=== PATIENT | female | born 1975 | race Two or more races ===

== ENCOUNTER → 2025-04-03 | Outpatient (CLI) | payer BC, SELFPAY ==
--- NOTE | 2025-04-03 08:15 | XR_ITS ---
Examination: Screening digital mammography, bilateral Computer aided detection 3-D breast Tomosynthesis, bilateral Date and time of exam: April 03, 2025 0819 hours Compared to mammograms dating to April 05, 2015 Indication: Screening Technique: Nonmagnified MLO, CC views of the breasts to been obtained, reconstructed from 3-D Tomosynthesis images. R2 computer aided detection program utilized for evaluation of suspicious masses and/or abnormal calcifications. 3-D Tomosynthesis images obtained. Findings: The breasts are extremely dense, which limits the sensitivity of mammography Circumscribed 20 mm mass retroareolar region right breast nipple level which may represent a cyst Benign calcifications No definite suspicious masses Impression: BI-RADS Category 0: Incomplete: Need additional imaging evaluation Recommend follow-up bilateral breast sonography to confirm bilateral breast cysts and exclude solid nodule 20 mm retroareolar region right breast
== END | disposition home or self-care (01) ==
LOC: CDIM 07:54
PROVIDERS: Referring Provider Student in an Organized Health Care Education/Training Program; Visit Provider Student in an Organized Health Care Education/Training Program
DX: Z12.31 Encounter for screening mammogram for malignant neoplasm of breast (principal); N60.01 Solitary cyst of right breast; N60.02 Solitary cyst of left breast
CPT/HCPCS: 77063; 77067

== ENCOUNTER → 2025-07-03 | Outpatient (CLI) | payer BC, SELFPAY ==
--- NOTE | 2025-07-03 15:30 | XR_ITS ---
Examination: Breast ultrasound complete, bilateral Date and time of exam: July 03, 2025, 1522 hours INDICATIONS: Mammogram April 03, 2025 20 mm nodule retroareolar region right breast, breast sonogram March 14, 2020 for 3:00 nodule 33 x 32 mm Technique: Real-time grayscale ultrasonographic imaging bilateral breasts, including all 4 quadrants as well as nipple retroareolar and axillary regions. Findings: Sonographic images right breast Benign cyst 8:00 nodule circumscribed 7 x 6 mm 9:00 cyst, 16 x 14 mm 10:00 nodule with breast biopsy marker circumscribed 7 x 8 mm Retroareolar nodule circumscribed 5 x 5 mm Retroareolar cyst 14 x 14 mm Sonographic images left breast 3:00 cyst 6 x 6 mm 6:00 intramammary lymph node 5 x 6 mm 9:00 cyst 5 x 4 mm IMPRESSION: BI-RADS Category 3: Probably benign findings Recommend 1 additional 6-month right breast sonogram follow-up to document stability of multiple solid nodules described above
== END | disposition home or self-care (01) ==
PROVIDERS: PCP Registered Nurse; Referring Provider Registered Nurse; Visit Provider Registered Nurse
DX: N63.41 Unspecified lump in right breast, subareolar (principal); N63.13 Unspecified lump in the right breast, lower outer quadrant; N63.11 Unspecified lump in the right breast, upper outer quadrant
CPT/HCPCS: 76641